=== PATIENT | female | born 1945 | race Native Hawaiian/Other Pacific Islander ===

== ENCOUNTER 2023-05-25 12:47 | Day surgery (SDC) | payer MEDICARE, OTHER ==
[~2023-05-25] VITALS: Ht 152.4 cm; Wt 48.0 kg
[~2023-05-25 12:47] MED LIST: ACET325 PO; AMLODIPINE BESY10 MG PO; CARVEDILOL6.25 MG PO; HYDR10 PO; INSULANI SC; NEURONTIN300 MG PO
[2023-05-25 14:52] VITALS: BP 188/102
--- NOTE | 2023-05-25 14:58 | NUR ---
PT BACK TO RECOVERY ROOM. PT ALERT AND ORIENTED. PERM CATH DRESSING CLEAN AND DRY.
[2023-05-25 15:02] VITALS: BP 230/86
[2023-05-25 15:15] VITALS: BP 224/87
[2023-05-25 15:30] VITALS: BP 232/84
--- NOTE | 2023-05-25 15:51 | NUR ---
DR SPANN IN TO SEE PT. PT EATING LUNCH.
--- NOTE | 2023-05-25 16:20 | NUR ---
PT AND SISTER VERBALIZE D/C INSTRUCTIONS. PT DRESSED. IV D/C CATHETER INTACT. PT WHEELED OUT TO HER SISTERS CAR AFTER USING REST ROOM.
== END 2023-05-25 16:24 | disposition home or self-care (01) ==
LOC: MHTC 12:47
DX: Z49.01 Encounter for fitting and adjustment of extracorporeal dialysis catheter (principal); I13.2 Hypertensive heart and chronic kidney disease with heart failure and with stage 5 chronic kidney disease, or end stage renal disease; E11.22 Type 2 diabetes mellitus with diabetic chronic kidney disease; N18.6 End stage renal disease; E11.42 Type 2 diabetes mellitus with diabetic polyneuropathy; Z88.5 Allergy status to narcotic agent; Z88.8 Allergy status to other drugs, medicaments and biological substances; Z79.4 Long term (current) use of insulin; Z79.899 Other long term (current) drug therapy
CPT/HCPCS: 36558; 76937; 77001; 99152; C1750; C1769; C1894; J1644; J2250; J3010; J7040

== ENCOUNTER 2023-07-09 09:31 | Emergency (ER) | payer MEDICARE, OTHER ==
[~2023-07-09] VITALS: Ht 152.4 cm; Wt 45.8 kg
[2023-07-09 10:11] LABS: BASOPHILS ABSOLUTE AUTO 0.04 K/mm3 (0.00-0.23); BASOPHILS PERCENT AUTO 1 % (0-2); EOSINOPHILS ABSOLUTE AUTO 0.06 K/mm3 (0.00-0.68); EOSINOPHILS PERCENT AUTO 1 % (0-6); Hematocrit 32.9 % (33.0-51.0); IMMATURE GRAN ABSOLUTE AUTO 0.04 K/mm3 (0.00-0.10); IMMATURE GRAN PERCENT AUTO 1 % (0-1); LYMPHOCYTES PERCENT AUTO 19 % (21-46); MONOCYTES ABSOLUTE AUTO 0.65 K/mm3 (0.16-1.47); MONOCYTES PERCENT AUTO 8 % (4-13); Mean Corpuscular HGB 29.3 pg (26.0-34.0); Mean Corpuscular HGB Conc 33.4 g/dL (31.5-36.5); Mean Corpuscular Volume 88 fL (80-100); Mean Platelet Volume 9.8 fL (9.1-12.4); NEUTROPHILS ABSOLUTE AUTO 6.21 K/mm3 (1.96-9.15); NEUTROPHILS PERCENT AUTO 72 % (41-73); Platelet Count 295 K/mm3 (150-400); RDW Standard Deviation 54.6 fL (35.1-46.3); Red Blood Cell Count 3.76 M/mm3 (3.80-5.20)
[2023-07-09 10:41] LABS: Albumin, Blood 2.7 g/dL (3.4-5.0); Albumin/Globulin Ratio 0.7 (0.8-1.8); Bilirubin, Total 0.5 mg/dL (0.1-1.0); Bun/Creatinine Ratio 9.7 (12.0-20.0); Calcium, Blood 8.5 mg/dL (8.5-10.1); Creatinine, Blood 3.31 mg/dL (0.40-1.00); Globulin, Blood 4.1 g/dL (2.2-4.0); Potassium, Blood 3.5 mmol/L (3.5-5.5); Total Protein, Blood 6.8 g/dL (6.4-8.2)
[2023-07-09 10:48] VITALS: BP 129/64
== END 2023-07-09 11:16 | disposition home or self-care (01) ==
LOC: ER 09:31
PROVIDERS: Physician Assistant
DX: I95.9 Hypotension, unspecified (principal); Z88.5 Allergy status to narcotic agent; Z88.8 Allergy status to other drugs, medicaments and biological substances; Z79.899 Other long term (current) drug therapy; Z79.4 Long term (current) use of insulin; E11.22 Type 2 diabetes mellitus with diabetic chronic kidney disease; N18.9 Chronic kidney disease, unspecified; I12.9 Hypertensive chronic kidney disease with stage 1 through stage 4 chronic kidney disease, or unspecified chronic kidney disease; E11.40 Type 2 diabetes mellitus with diabetic neuropathy, unspecified
CPT/HCPCS: 80053; 85025; 93005; 93010; 99284-25

== ENCOUNTER 2024-03-05 04:27 | Inpatient (IN) | payer MEDICARE, OTHER ==
[~2024-03-05] VITALS: Ht 152.4 cm; Wt 55.0 kg
[2024-03-05] VITALS (8 sets, daily range): BP systolic 119–173; BP diastolic 54–73
[~2024-03-05 04:27] MED LIST changes: +ASPI81CH PO; +ATOR40TA PO; +CLOP75 PO; +CYCL0.05OP BOTHEYES; +LATANOPROST2.5 M3 BOTHEYES; +NITR.4SL SL; +PANT40 PO; +POTA10T PO; +SEVEC800 PO; +TORSE20 PO
[2024-03-05 05:06] LABS: BASOPHILS ABSOLUTE AUTO 0.03 K/mm3 (0.00-0.23); BASOPHILS PERCENT AUTO 0 % (0-2); EOSINOPHILS PERCENT AUTO 1 % (0-6); Hematocrit 26.3 % (33.0-51.0); Hemoglobin 9.2 g/dL (11.5-16.0); IMMATURE GRAN ABSOLUTE AUTO 0.02 K/mm3 (0.00-0.10); IMMATURE GRAN PERCENT AUTO 0 % (0-1); LYMPHOCYTES ABSOLUTE AUTO 2.26 K/mm3 (0.84-5.20); LYMPHOCYTES PERCENT AUTO 30 % (21-46); MONOCYTES ABSOLUTE AUTO 1.07 K/mm3 (0.16-1.47); MONOCYTES PERCENT AUTO 14 % (4-13); Mean Corpuscular HGB 31.2 pg (26.0-34.0); Mean Corpuscular Volume 89 fL (80-100); Mean Platelet Volume 9.9 fL (9.1-12.4); NEUTROPHILS ABSOLUTE AUTO 4.16 K/mm3 (1.96-9.15); NEUTROPHILS PERCENT AUTO 54 % (41-73); Platelet Count 236 K/mm3 (150-400); RDW Coefficient Variation 16.4 % (11.7-14.2); RDW Standard Deviation 53.5 fL (35.1-46.3); Red Blood Cell Count 2.95 M/mm3 (3.80-5.20); White Blood Cell Count 7.64 K/mm3 (4.00-11.30)
[2024-03-05] MEDS ORDERED: Nitroglycerin 1 INCH/GM PKT TOP ONE (05:15)
[2024-03-05 05:34] LABS: Albumin, Blood 2.9 g/dL (3.4-5.0); Albumin/Globulin Ratio 0.8 (0.8-1.8); Bilirubin, Total 0.7 mg/dL (0.1-1.0); Bun/Creatinine Ratio 7.4 (12.0-20.0); Creatinine, Blood 4.61 mg/dL (0.40-1.00); Globulin, Blood 3.8 g/dL (2.2-4.0); Potassium, Blood 3.2 mmol/L (3.5-5.5); Total Protein, Blood 6.7 g/dL (6.4-8.2)
[2024-03-05 08:04] LABS: Anti-Xa UFH, PHA Monitoring <0.10 IU/mL; International Normalized Ratio 1.09; Prothrombin Time Results 11.6 Sec (9.7-11.5)
[2024-03-05] MEDS ORDERED: Heparin Sodium,Porcine/0.5 NS 500 ML IV SCH (08:20)
[2024-03-05] MEDS ORDERED: Heparin Sodium 5000 Units/ML 1ML MDV IV ONE (08:20)
[2024-03-05] MEDS ORDERED: Furosemide 10 MG/ML 4ML Vial IV ONE (08:45)
[2024-03-05] MEDS ORDERED: Nitroglycerin 0.4 MG SUBL SL PRN (09:30)
[2024-03-05] MEDS ORDERED: Acetaminophen 325 MG TABLET PO PRN (09:30)
[2024-03-05] MEDS ORDERED: Aspirin 81 MG Chew PO ONE (09:30)
[2024-03-05] MEDS ORDERED: Potassium Chloride 40 MEQ in NS 250 ML IV ONE (09:30)
[2024-03-05] MEDS ORDERED: Ondansetron HCl 2 MG / ML 2ML Vial IV PRN (09:35)
[2024-03-05] MEDS ORDERED: Morphine Sulfate 4 MG/1 ML Injection IV PRN (09:35)
[2024-03-05] MEDS ORDERED: Atorvastatin 40 MG Tab PO SCH ×2 (10:00→21:00)
--- NOTE | 2024-03-05 13:08 | NUR ---
CUSTOMS INVESTIGATOR TO BEDSIDE PT CONSENTED TO CATH TODAY, CONSENT SIGNED BY PT AND WITNESSED BY RN. CALLED PT'S SISTER TO UPDATE ON PLAN FOR CARDIAC CATHETERIZATION. BRIEFLY EXPLAINED PROCEDURE. SISTER IS HEADED BACK TO HOSPITAL NOW.
[2024-03-05] MEDS ORDERED: Heparin Sodium 1000 Units/ML 10ML MDV ONE (13:11)
[2024-03-05] MEDS ORDERED: NS 1,000 ML IV ONE ×2 (13:11→15:47)
[2024-03-05] MEDS ORDERED: NiCARdipine HCL 1,000 MCG/5 ML SYR ONE (13:11)
[2024-03-05] MEDS ORDERED: NS 250 ML IV ONE (13:11)
[2024-03-05] MEDS ORDERED: Nitroglycerin 2 MG/20 ML BTL ONE (13:11)
[2024-03-05] MEDS ORDERED: Clopidogrel Bisulfate 75 MG Tab PO SCH ×2 (14:00→16:00)
[2024-03-05] MEDS ORDERED: Gabapentin 300 MG Cap PO SCH (14:00)
[2024-03-05] MEDS ORDERED: Nitroglycerin 1 INCH/GM PKT TOP SCH (14:00)
[2024-03-05] MEDS ORDERED: Midazolam HCl 1MG / ML 2ML Vial ONE (15:47)
[2024-03-05] MEDS ORDERED: FentaNYL Citrate 50 MCG/ML 2 ML Injection ONE (15:47)
[2024-03-05] MEDS ORDERED: Clopidogrel Bisulfate 300 MG Cap ONE (16:41)
[2024-03-05] MEDS ORDERED: Carvedilol 6.25 MG Tab PO SCH (17:00)
[2024-03-05] MEDS ORDERED: HydrALAZINE HCl 20 MG / ML 1ML Vial IV PRN (17:25)
--- NOTE | 2024-03-05 18:07 | NUR ---
PT SUMMARY; PT ADMITTED TO [facility] AROUND 1400, PT IS HERE FOR CHEST PAIN. HAS 9/10 CHEST PRESSURE WAS GIVEN A TOTAL OF 2MG MORPHINE AND NITRO PASTE STARTED AND BROUGHT PAIN LEVEL DOWN TO 5. VITALS HRR SR 60'S, SBP 140-150'S, SATS ABOVE 90% ON 2L OF O2, AFEBRILE. TROPONIN TRENDED DOWN, DR YANG CAME BY TO CONSENT PT FPR ANGIO TODAY, PT WAS KEPT NPO. PT WAS TAKEN TO RECORDS MANAGEMENT TECHNICIAN AROUND 1555, CAME BACK AFTER AN HOUR WITH 2 STENTS PLACED TO MID AND DISTAL RCA. RIGHT RADIAL SITE WITH TR BAND IN PLACE, NO HEMATOMA OR BLEEDING NOTED ON THE SITE, SPLINT BOARD IN PLACE. DR BARCENAS CAME BY WELL PLAN TO DIALYZE PT TOMORROW PRIOR TO DISCHARGE. NO OTHER ISSUES REPORTED, PT NOW EATING DINNER, SISTER AT THE BEDSIDE AWARE OF THE PLAN OF CARE. CALL LIGHTS IN REACH WILL REPORT TO ONCOMING SHIFT
[2024-03-05] MEDS ORDERED: Ezetimibe 10 MG Tab PO SCH (21:00)
[2024-03-05] MEDS ORDERED: Latanoprost 0.005% Opth Soln 2.5 ML BOTHEYES SCH (21:00)
[2024-03-05] MEDS ORDERED: Misc. Opth BOTHEYES SCH (21:00)
[2024-03-06] VITALS (21 sets, daily range): BP systolic 108–166; BP diastolic 46–100
[2024-03-06 04:53] LABS: Hematocrit 25.6 % (33.0-51.0); Hemoglobin 8.7 g/dL (11.5-16.0); Mean Corpuscular HGB 30.4 pg (26.0-34.0); Mean Corpuscular Volume 90 fL (80-100); Mean Platelet Volume 10.6 fL (9.1-12.4); NRBC ABSOLUTE 0.03 K/mm3 (0.00-0.02); NRBC Auto 0.4 /100 WBC (0.0-0.2); Platelet Count 223 K/mm3 (150-400); RDW Coefficient Variation 16.3 % (11.7-14.2); Red Blood Cell Count 2.86 M/mm3 (3.80-5.20); White Blood Cell Count 6.74 K/mm3 (4.00-11.30)
--- NOTE | 2024-03-06 05:28 | NUR ---
03/05/24 1930 2ML AIR REMOVED TR BAND. 2030 2ML AIR REMOVED TR BAND. 2130 2ML AIR REMOVED TR BAND. 2250 2ML AIR REMOVED TR BAND. 2313 2ML AIR REMOVED TR BAND. 2338 2ML AIR REMOVED TR BAND. TOTAL 12ML AIR REMOVED FROM TR BAND. RT RADIAL SITE REMAINED INTACT NO BLEEDING/BRUISING/SWELLING/PAIN NOTED. 03/06/24 0120 TR BAND REMOVED AND TEGADERM PLACED OVER RIGHT RADIAL SITE.
--- NOTE | 2024-03-06 05:31 | NUR ---
0300 PT O2 SAT DROPPING WHILE ASLEEP. PT WOKE EASILY, NO C/O SOB/CP. PT REPOSITIONED AND NC RESECURED IN NARES WITH LOOPS AROUND EARS. O2 SAT IMPROVED WNL.
[2024-03-06 05:43] LABS: Albumin, Blood 2.7 g/dL (3.4-5.0); Albumin/Globulin Ratio 0.8 (0.8-1.8); Alk Phos 87 U/L (50-136); Anion Gap 12 mmol/L (3-11); Aspartate Aminotrans (AST/SGOT 743 U/L (12-37); Bilirubin, Total 0.5 mg/dL (0.1-1.0); Blood Urea Nitrogen 47 mg/dL (8-24); Bun/Creatinine Ratio 8.2 (12.0-20.0); CHOL/HDL RATIO 2.3; CO2, Blood 30 mmol/L (21-32); Calcium, Blood 7.6 mg/dL (8.5-10.1); Chloride, Blood 95 mmol/L (98-108); Cholesterol 101 mg/dL (50-200); Creatinine, Blood 5.72 mg/dL (0.40-1.00); Globulin, Blood 3.5 g/dL (2.2-4.0); Glomerular Filtration Rate 7 (60-); Glucose, Blood 83 mg/dL (70-99); HDL Cholesterol 43 mg/dL (>39); LDL/HDL RATIO 0.9; Low Density Lipoprotein Chol 38 mg/dL (0-110); Phosphorus, Blood 5.1 mg/dL (2.5-4.9); Potassium, Blood 3.7 mmol/L (3.5-5.5); Sodium, Blood 133 mmol/L (136-145); Total Protein, Blood 6.2 g/dL (6.4-8.2); Triglycerides 100 mg/dL (30-160); Very Low Density Lipoprot Chol 20 mg/dL (6-32)
[2024-03-06 05:54] LABS: Alanine Aminotransfer (ALT/SGP 1018 U/L (12-78)
--- NOTE | 2024-03-06 06:17 | NUR ---
PT C/O MID BACK PAIN. PT REPOSITIONED AND GIVEN PAIN MEDICATION.
[2024-03-06] MEDS ORDERED: Calcium Acetate 667 MG Gel Cap PO SCH (07:30)
--- NOTE | 2024-03-06 08:42 | NUR ---
PT GIVEN MORNING MEDS AND NOW HEADED TO DIALYSIS FOR TREATMENT.
[2024-03-06] MEDS ORDERED: Epoetin Alfa-EPBX 10,000 Unit/ML 1ML Vial SC SCH (09:00)
[2024-03-06] MEDS ORDERED: Aspirin 81 MG Chew PO SCH (09:00)
[2024-03-06] MEDS ORDERED: Losartan Potassium 25 MG Tab PO SCH (09:00)
[2024-03-06] MEDS ORDERED: Gabapentin 300 MG Cap PO SCH (09:00)
[2024-03-06] MEDS ORDERED: Clopidogrel Bisulfate 75 MG Tab PO SCH (09:00)
[2024-03-06] MEDS ORDERED: Vitamin B Cmplx/Vit C/Folic Ac 1 Tab PO SCH (09:00)
--- NOTE | 2024-03-06 11:26 | NUR ---
PT HAS ARRIVED BACK ON THE UNIT AFTER DIALYSIS
--- NOTE | 2024-03-06 18:12 | NUR ---
PT SUMMARY; PT HAD DIALYSIS TODAY 2L OF FLUID WAS TAKEN OUT, PT REPORTS FATIGUE POST DIALYSIS AND HAS TAKEN NAPS SINCE THEN. VITALS STABLE HRR SR 60'S, SBP 120-130'S, SATS ABOVE 90% ON 2L ATTEMPTED TO TITRATE TO RA PT STILL DESATS TO 87% PT REPORTS BREATHING HAS IMPROVED AFTER DIALYSIS. THORACENTESIS ORDERED FOR TOMORROW FOR PLEURAL EFFUSION. COMMUNICATED WITH RADIOLOGIST ABOUT PLAVIX AND ASPIRIN, PT HAD A LOADING DOSE DURING ANGIO AND THAT PT CANNOT HOLD PLAVIX POST ANGIO, PROOF COINS INSPECTOR ALSO ABLE TO LET MD AWARE OF THE SITUATION. WILL FF-UP IN AM WITH THE RADIOLOGIST. PT MADE AWARE OF THE PLAN NO OTHER ISSUES ENCOUNTERED FOR THE SHIFT, ABLE TO MAKE NEEDS KNOWN, WILL REPORT TO ONCOMING SHIFT
[2024-03-07] VITALS (20 sets, daily range): BP systolic 122–184; BP diastolic 44–78
--- NOTE | 2024-03-07 04:18 | NUR ---
SHIFT SUMMARY PATIENT A&OX4, VSS ON 2LNC, MINIMAL URINE OUTPUT VIA PUREWICK, ESRD ON HD- TOLERATED DIAYSIS YESTEDAY WITH 2L REMOVED. PLAN IS FOR THORACENTESIS TODAY FOR BL PLEURAL EFFUSIONS SEEN ON CT CHEST AT ADMISSION. NSR ON TELE, PATIENT DENIES PAIN AND IS TOLERATING A RENAL DIET. R RADIAL ANGIO SITE CDI. L ARM FISTUAL WITH POSITIVE BRUIT AND THRILL. PER FORESTRY HUNTER DR. CAGLE PATIENT TO BE DISCHARGED ON BRILINTA NOT PLAVIX, COUPON ON CHART, FOLLOW UP APPT CARD ON CHART, STENT CARD ON CHART. TO DC 1-2 DAYS, HOME WITH RESUMPTION OF OP DIALYSIS
[2024-03-07 04:42] LABS: Percent Saturation 11.4 % (15.0-50.0)
[2024-03-07 04:47] LABS: Albumin, Blood 2.5 g/dL (3.4-5.0); Albumin/Globulin Ratio 0.7 (0.8-1.8); Bilirubin, Total 0.4 mg/dL (0.1-1.0); Bun/Creatinine Ratio 8.1 (12.0-20.0); Calcium, Blood 7.5 mg/dL (8.5-10.1); Creatinine, Blood 5.4 mg/dL (0.40-1.00); Globulin, Blood 3.5 g/dL (2.2-4.0); Potassium, Blood 3.5 mmol/L (3.5-5.5)
--- NOTE | 2024-03-07 12:12 | NUR ---
REASSESSMENT ATTEMPTED TO WEAN PT OFF OXYGEN THIS MORNING, BUT SATS DROPPED TO THE MID 80S ON RA. LUNGS ARE CLEAR, DIM IN THE BASES. SHE SPENT MOST OF THE MORNING AT DIALYSIS. RADIOLOGY CALLED AND SAID THEY ADVISE DOING A CXR TOMORROW TO RE-EVALUATE PLEURAL EFFUSIONS BEFORE DOING A THORACENTESIS. THIS WAS RELAYED TO DR. PALOMO. MEDICATED ONCE FOR HEADACHE. R TR ANGIO SITE IS C/D/I, SOFT, WITHOUT SIGNS OF HEMATOMA.
[2024-03-07] MEDS ORDERED: Polyethylene Glycol 3350 17 gm PO PRN (12:25)
[2024-03-07] MEDS ORDERED: Ferrous Sulfate 325 MG Tab PO SCH (13:00)
--- NOTE | 2024-03-07 16:38 | NUR ---
SHIFT SUMMARY PT HAD DIALYSIS THIS MORNING AND HAS BEEN RESTING IN BED SINCE. SHE WAS MEDICATED FOR SOME BILATERAL RIB PAIN THAT SHE STATES IS CHRONIC. LUNGS ARE DIM IN THE BASES, ON 1L/NC. SR, BP STABLE. PT'S SISTER HAS BEEN AT THE BEDSIDE THIS AFTERNOON AND HAS BEEN UPDATED.
[2024-03-07] MEDS ORDERED: Docusate Sodium 100 MG Cap PO SCH (21:00)
[2024-03-08] VITALS (19 sets, daily range): BP systolic 146–206; BP diastolic 51–78
--- NOTE | 2024-03-08 04:14 | NUR ---
SHIFT SUMMARY PATIENT WITH NO ISSUES OVERNIGHT, VSS ON 1LNC, WILL ATTEMPT TO WEAN O2 THIS AM. PATIENT'S PUREWICK REMOVED DUE TO MINIMAL URINE OUTPUT AND MORE RISK FOR UTI. JESUS CARE AND NEW DEPENDS PROVIDED. PATIENT TOLERATING RENAL DIET, PLAN IS FOR REPEAT CHEST XRAY THIS AM, THEN POSSIBLE THORACENTESIS VS ANOTHER RUN OF DIALYSIS PER TAPING FOREMAN AT BEDSIDE. PATIENT WISHES TO GO HOME TODAY PENDING RESULTS/PROCEDURES.. DENIED PAIN THIS SHIFT. GETTING OOB WITH NURSE ASSIST. NSR ON TELE, OFFERED A SHOWER- PATIENT REFUSED. R RADIAL SITE CDI. L ARM FISTULA WNL.
[2024-03-08 04:44] LABS: Albumin, Blood 2.5 g/dL (3.4-5.0); Anion Gap 10 mmol/L (3-11); Blood Urea Nitrogen 26 mg/dL (8-24); Bun/Creatinine Ratio 5.8 (12.0-20.0); CO2, Blood 29 mmol/L (21-32); Calcium, Blood 7.6 mg/dL (8.5-10.1); Chloride, Blood 103 mmol/L (98-108); Creatinine, Blood 4.48 mg/dL (0.40-1.00); Glomerular Filtration Rate 10 (60-); Glucose, Blood 95 mg/dL (70-99); Phosphorus, Blood 3.3 mg/dL (2.5-4.9); Potassium, Blood 3.5 mmol/L (3.5-5.5); Sodium, Blood 138 mmol/L (136-145)
--- NOTE | 2024-03-08 06:46 | NUR ---
ULTRASOUND/THORA PLAN- US CALLING ASKING FOR UPDATE REGARDING PLAN FOR THORA- PER MD FROM YESTERDAY PATIENT TO HAVE A REPEAT XR OF CHEST TO SEE IF AN US-GUIDED THORA IS NECESSARY OR IF THE PT'S PLEURAL EFFUSIONS ARE TOO SMALL. RADIOLOGIST WANTS CXR DONE PRIOR TO US/THORA. NO ORDER FOR CXR HAS BEEN ENTERED. WILL PAGE DAY MD WHEN THEY ARRIVE TO OBTAIN ORDER.
--- NOTE | 2024-03-08 08:58 | NUR ---
0830 UP TO BR W/ SBA THEN TAKEN VIA BED TO DIALYSIS.
--- NOTE | 2024-03-08 09:27 | NUR ---
PT IN DIALYSIS, WORD RECEIVED WILL NOT NEED TO DO THORACENTESIS, WILL GIVE PLAVIX AND ASPIRIN UPON HER RETURN TO HER ROOM.
[2024-03-08 11:19] LABS: Albumin, Blood 2.4 g/dL (3.4-5.0); Albumin/Globulin Ratio 0.6 (0.8-1.8); Bilirubin, Direct 0.1 mg/dL (0.0-0.3); Bilirubin, Indirect 0.3 mg/dL (0.1-0.7); Bilirubin, Total 0.4 mg/dL (0.1-1.0); Globulin, Blood 3.8 g/dL (2.2-4.0); Total Protein, Blood 6.2 g/dL (6.4-8.2)
--- NOTE | 2024-03-08 13:09 | NUR ---
MORELIA HAS BEEN OFF HER OXYGEN SINCE BEFORE HEADING TO DIALYSIS AT 0830. SHE HAS HAD LUNCH AND SINCE BEEN UP TO THE BATHROOM, STATES SHE FEELS A BIT WINDED AFTER USING THE RESTROOM, HER SATS ARE 97-98% ON ROOM AIR. SISTER IS HERE TO VISIT. PT IS ALSO SAYING THAT HER BACK IS BOTHERING HER SOME. LUNGS ARE NOW CLEAR AFTER DIALYSIS, NO FURTHER RALES HEARD. NO EDEMA NOTED IN EXTREMITIES. CONTINUES TO BE PLEASANT AND COOPERATIVE. BLOOD PRESSURE IS REMAINING ELEV. MOVED CUFF FROM LEG TO FOREARM, SIMILAR READING.
[2024-03-08] MEDS ORDERED: B-COMPLEX WITH1 EACH PO (13:40)
[2024-03-08] MEDS ORDERED: Calcium Acetat667 MG PO (13:41)
[2024-03-08] MEDS ORDERED: CLOP75 PO (13:41)
[2024-03-08] MEDS ORDERED: EZET10 PO (13:42)
[2024-03-08] MEDS ORDERED: FERSU300 PO (13:43)
[2024-03-08] MEDS ORDERED: LOSA25 PO (13:43)
[2024-03-08] MEDS ORDERED: MIRALAX17 GM PO (13:44)
--- NOTE | 2024-03-08 13:55 | NUR ---
PT WAS UP AND WALKING IN THE HALLWAY WITH RESPIRATORY CARE FOR OXYGEN EVAL, SHE DID WELL, CHARISSE REPORTED SHE NEVER DROPPED BELOW 93%. SHE FELT GOOD AND HAS RETURNED TO HER ROOM. WILL FINISH HER PAPERWORK AND THEN GO OVER IT WITH HER. PLAN TO DISCHARGE TO SISTER DRIVING.
--- NOTE | 2024-03-08 14:58 | NUR ---
DISCHARGE INSTRUCTIONS GIVEN BY HELEN GARZALOCKSTITCH LINING SETTER NURSE. QUESTIONS ASKED AND ANSWERED. PACKET GIVEN TO PATIENT WITH ALL INFORMATION. WHEELCHAIR RIDE TO SOUTH ENTRANCE, TO HER CAR WHERE SISTER IS DRIVING.
== END 2024-03-08 15:01 | disposition home or self-care (01) | DRG 321 ==
LOC: ER 04:27 → PCU 09:22
PROVIDERS: Emergency Medicine; ADMIT Internal Medicine
PROC: 027035Z Dilation of Coronary Artery, One Artery with Two Drug-eluting Intraluminal Devices, Percutaneous Approach (ICD-10-PCS; principal; 2024-03-05)
PROC: B2111ZZ Fluoroscopy of Multiple Coronary Arteries using Low Osmolar Contrast (ICD-10-PCS; 2024-03-05)
PROC: 4A023N7 Measurement of Cardiac Sampling and Pressure, Left Heart, Percutaneous Approach (ICD-10-PCS; 2024-03-05)
DX: I21.4 Non-ST elevation (NSTEMI) myocardial infarction (principal); I50.23 Acute on chronic systolic (congestive) heart failure; N18.6 End stage renal disease; J96.01 Acute respiratory failure with hypoxia; E87.1 Hypo-osmolality and hyponatremia; N25.81 Secondary hyperparathyroidism of renal origin; I13.2 Hypertensive heart and chronic kidney disease with heart failure and with stage 5 chronic kidney disease, or end stage renal disease; E78.5 Hyperlipidemia, unspecified; I25.10 Atherosclerotic heart disease of native coronary artery without angina pectoris; Z66 Do not resuscitate; Z99.2 Dependence on renal dialysis; K76.1 Chronic passive congestion of liver; E87.6 Hypokalemia; D63.1 Anemia in chronic kidney disease; D50.9 Iron deficiency anemia, unspecified; E11.22 Type 2 diabetes mellitus with diabetic chronic kidney disease; E11.42 Type 2 diabetes mellitus with diabetic polyneuropathy; H40.9 Unspecified glaucoma; I27.20 Pulmonary hypertension, unspecified; Z88.5 Allergy status to narcotic agent; Z88.8 Allergy status to other drugs, medicaments and biological substances; Z79.82 Long term (current) use of aspirin; Z79.899 Other long term (current) drug therapy; Z79.891 Long term (current) use of opiate analgesic; I25.2 Old myocardial infarction; Z90.49 Acquired absence of other specified parts of digestive tract; Z98.890 Other specified postprocedural states; Z90.710 Acquired absence of both cervix and uterus
CPT/HCPCS: 36415; 71045; 71046; 71260; 76937; 80053; 80061; 80069; 80076; 82728; 83036; 83540; 83550; 83615; 83880; 84100; 84484; 85025; 85027; 85347; 85520; 85610; 85730; 93005; 93010; 93306; 93454; 94760; 94761; 94762; 96365-59; 96375-59; 96376-59; 99152; 99153; 99285-25; A9270; C1725; C1769; C1874; C1887; C1894; C9600; J0360; J1644; J1940; J2250; J2270; J3010; J3480; J7030; J7050; Q5106; Q9967

== ENCOUNTER 2024-03-12 08:27 | Emergency (ER) | payer MEDICARE, OTHER ==
[~2024-03-12] VITALS: Ht 152.4 cm; Wt 56.2 kg
[~2024-03-12 08:27] MED LIST changes: +B-COMPLEX WITH1 EACH PO; +Calcium Acetat667 MG PO; +EZET10 PO; +FERSU300 PO; +LOSA25 PO; +MIRALAX17 GM PO
[2024-03-12 08:56] LABS: BASOPHILS ABSOLUTE AUTO 0.05 K/mm3 (0.00-0.23); BASOPHILS PERCENT AUTO 1 % (0-2); EOSINOPHILS PERCENT AUTO 3 % (0-6); Hematocrit 30.8 % (33.0-51.0); Hemoglobin 10.2 g/dL (11.5-16.0); IMMATURE GRAN ABSOLUTE AUTO 0.04 K/mm3 (0.00-0.10); IMMATURE GRAN PERCENT AUTO 1 % (0-1); LYMPHOCYTES ABSOLUTE AUTO 2.18 K/mm3 (0.84-5.20); LYMPHOCYTES PERCENT AUTO 35 % (21-46); MONOCYTES ABSOLUTE AUTO 0.97 K/mm3 (0.16-1.47); MONOCYTES PERCENT AUTO 15 % (4-13); Mean Corpuscular HGB 30.3 pg (26.0-34.0); Mean Corpuscular HGB Conc 33.1 g/dL (31.5-36.5); Mean Corpuscular Volume 91 fL (80-100); Mean Platelet Volume 10.3 fL (9.1-12.4); NEUTROPHILS ABSOLUTE AUTO 2.88 K/mm3 (1.96-9.15); NEUTROPHILS PERCENT AUTO 46 % (41-73); Platelet Count 302 K/mm3 (150-400); RDW Coefficient Variation 16.8 % (11.7-14.2); RDW Standard Deviation 55.5 fL (35.1-46.3); Red Blood Cell Count 3.37 M/mm3 (3.80-5.20); White Blood Cell Count 6.32 K/mm3 (4.00-11.30)
[2024-03-12 09:24] LABS: Albumin, Blood 3.1 g/dL (3.4-5.0); Albumin/Globulin Ratio 0.8 (0.8-1.8); Bilirubin, Total 0.8 mg/dL (0.1-1.0); Bun/Creatinine Ratio 6.7 (12.0-20.0); Calcium, Blood 8.8 mg/dL (8.5-10.1); Creatinine, Blood 4.31 mg/dL (0.40-1.00); Potassium, Blood 3.6 mmol/L (3.5-5.5); Total Protein, Blood 7.1 g/dL (6.4-8.2)
[2024-03-12] MEDS ORDERED: PLAVIX75 MG PO (11:35)
[2024-03-12 11:43] VITALS: BP 153/66
== END 2024-03-12 11:45 | disposition home or self-care (01) ==
LOC: ER 08:27
PROVIDERS: Physician Assistant
DX: M54.6 Pain in thoracic spine (principal); E11.40 Type 2 diabetes mellitus with diabetic neuropathy, unspecified; E11.22 Type 2 diabetes mellitus with diabetic chronic kidney disease; I12.0 Hypertensive chronic kidney disease with stage 5 chronic kidney disease or end stage renal disease; N18.6 End stage renal disease; Z79.899 Other long term (current) drug therapy; Z79.82 Long term (current) use of aspirin; Z88.5 Allergy status to narcotic agent; Z88.8 Allergy status to other drugs, medicaments and biological substances
CPT/HCPCS: 71046; 80053; 83690; 84484; 85025; 93005; 93010; 99285-25

== ENCOUNTER 2024-03-22 13:59 | Emergency (ER) | payer MEDICARE, OTHER ==
[~2024-03-22] VITALS: Ht 152.4 cm; Wt 53.5 kg
[~2024-03-22 13:59] MED LIST changes: +PLAVIX75 MG PO
[2024-03-22 14:13] VITALS: BP 151/50
== END 2024-03-22 15:54 | disposition home or self-care (01) ==
LOC: ER 13:59
DX: I97.618 Postprocedural hemorrhage of a circulatory system organ or structure following other circulatory system procedure (principal); I12.0 Hypertensive chronic kidney disease with stage 5 chronic kidney disease or end stage renal disease; E11.22 Type 2 diabetes mellitus with diabetic chronic kidney disease; N18.6 End stage renal disease; Z99.2 Dependence on renal dialysis; E11.40 Type 2 diabetes mellitus with diabetic neuropathy, unspecified; Z88.5 Allergy status to narcotic agent; Z88.8 Allergy status to other drugs, medicaments and biological substances; Z79.82 Long term (current) use of aspirin; Z79.01 Long term (current) use of anticoagulants; Z79.899 Other long term (current) drug therapy
CPT/HCPCS: 12001; 99282-25

== ENCOUNTER 2024-10-26 10:06 | Observation (INO) | payer OTHER, MEDICARE ==
[~2024-10-26] VITALS: Ht 152.4 cm; Wt 55.2 kg
[2024-10-26 10:35] LABS: BASOPHILS ABSOLUTE AUTO 0.03 K/mm3 (0.00-0.23); BASOPHILS PERCENT AUTO 1 % (0-2); EOSINOPHILS PERCENT AUTO 2 % (0-6); Hematocrit 32.9 % (33.0-51.0); Hemoglobin 10.9 g/dL (11.5-16.0); IMMATURE GRAN ABSOLUTE AUTO 0.02 K/mm3 (0.00-0.10); IMMATURE GRAN PERCENT AUTO 0 % (0-1); LYMPHOCYTES ABSOLUTE AUTO 1.49 K/mm3 (0.84-5.20); LYMPHOCYTES PERCENT AUTO 32 % (21-46); MONOCYTES ABSOLUTE AUTO 0.75 K/mm3 (0.16-1.47); MONOCYTES PERCENT AUTO 16 % (4-13); Mean Corpuscular HGB 30.3 pg (26.0-34.0); Mean Corpuscular HGB Conc 33.1 g/dL (31.5-36.5); Mean Corpuscular Volume 91 fL (80-100); Mean Platelet Volume 10.1 fL (9.1-12.4); NEUTROPHILS ABSOLUTE AUTO 2.29 K/mm3 (1.96-9.15); NEUTROPHILS PERCENT AUTO 49 % (41-73); Platelet Count 190 K/mm3 (150-400); RDW Coefficient Variation 16.2 % (11.7-14.2); RDW Standard Deviation 54.2 fL (35.1-46.3); White Blood Cell Count 4.68 K/mm3 (4.00-11.30)
[2024-10-26 10:56] LABS: Albumin, Blood 3.3 g/dL (3.4-5.0); Albumin/Globulin Ratio 0.8 (0.8-1.8); Bilirubin, Total 0.8 mg/dL (0.1-1.0); Bun/Creatinine Ratio 3.8 (12.0-20.0); Calcium, Blood 8.1 mg/dL (8.5-10.1); Creatinine, Blood 5.57 mg/dL (0.40-1.00); Potassium, Blood 3.7 mmol/L (3.5-5.5); Total Protein, Blood 7.3 g/dL (6.4-8.2)
[2024-10-26] MEDS ORDERED: Furosemide 80 MG Tab PO ONE (15:00)
[2024-10-26 16:34] VITALS: BP 177/57
--- NOTE | 2024-10-26 17:16 | NUR ---
PT ARRIVED TO ROOM AOX4 AND COOPERATIVE OF CARE. PT SETTLED INTO ROOM CALL LIGHT WITHIN REACH. NO DISTRESS CURRENTLY NOTED AND DOING WELL ON 2L O2. WILL CONTINUE TO MONITOR.
[2024-10-26 20:29] VITALS: BP 159/59
[2024-10-26] MEDS ORDERED: Heparin Sodium,Porcine 5,000 UNIT/0.5 ML SDV SC SCH (21:00)
[2024-10-26] MEDS ORDERED: AMLO10 PO (22:43)
[2024-10-26] MEDS ORDERED: AmLODIPine Besylate 5 MG Tab PO SCH (23:20)
[2024-10-26] MEDS ORDERED: Gabapentin 300 MG Cap PO SCH (23:20)
[2024-10-26] MEDS ORDERED: Ezetimibe 10 MG Tab PO SCH (23:20)
[2024-10-26] MEDS ORDERED: Carvedilol 6.25 MG Tab PO SCH (23:20)
[2024-10-26] MEDS ORDERED: Latanoprost 0.005% Opth Soln 2.5 ML BOTHEYES SCH (23:25)
[2024-10-27] VITALS (18 sets, daily range): BP systolic 125–171; BP diastolic 47–93
--- NOTE | 2024-10-27 04:50 | NUR ---
SHIFT SUMMARY PT ALERT ORIENTED ABLE TO VERBALIZE NEEDS GETS UP TO THE BATHROOM WITH 1 PERSON SBA. BP HAS BEEN ELEVATED. SHE TAKES BP MEDS AT HOME SO I CALLED MD AND GOT A ORDER TO START HER ON HER BP MEDS AND THEY WERE GIVEN. NO C/O PAIN THIS SHIFT. SHES A DIALYSIS PT AND MDS NOTE STATED THAT SHE WILL BE GOING TODAY. LABS WERE DONE ORDERED. SHE HAS A FISTULA TO HER LT ARM. REMAINS ON 1L OF O2 VIA NC SATTING AT 95%. CONTINUES ON A CONTINUOUS PULSE OX. SHES RESTING IN BED AT THIS TIME WITH CALL LIGHT IN REACH
[2024-10-27 06:01] LABS: Bun/Creatinine Ratio 3.5 (12.0-20.0); Calcium, Blood 7.4 mg/dL (8.5-10.1); Creatinine, Blood 7.21 mg/dL (0.40-1.00); Potassium, Blood 3.6 mmol/L (3.5-5.5)
[2024-10-27] MEDS ORDERED: Calcium Acetate 667 MG Gel Cap PO SCH (08:30)
[2024-10-27] MEDS ORDERED: Aspirin 81 MG Chew PO SCH (09:00)
[2024-10-27] MEDS ORDERED: Losartan Potassium 50 MG Tab PO SCH (09:00)
[2024-10-27] MEDS ORDERED: Clopidogrel Bisulfate 75 MG Tab PO SCH (09:00)
--- NOTE | 2024-10-27 12:50 | NUR ---
PT DISCHARGED AT 1230 TODAY AFTER SHE RECIEVED DIALYSIS IN THE AM. PT AOX4 AND COOPERATIVE OF ALL CARE. PT HAD DISCHARGE REVIEWED AND EDUCATIONAL MATERIAL SENT WITH PT. PT ESCORTED OUT TO S ENTRANCE VIA WHEELCHAIR NO DISTRESS NOTED AND SISTER TO TRANSPORT.
[2024-10-29 11:11] LABS: HEPATITIS B SURFACE ANTIBODY 75.45 IU/L
[2024-10-29 11:36] LABS: HEPATITIS B SURFACE ANTIGEN Negative (Negative)
[2024-10-29 11:44] LABS: HBV CORE ANTIBODIES,TOTAL Negative (Negative)
== END 2024-10-27 12:33 | disposition home or self-care (01) ==
LOC: ER 10:06 → MEDS 10:07 → ERHOLD 10:07 → MEDS 16:21
PROVIDERS: Hospitalist; Physician Assistant; Student in an Organized Health Care Education/Training Program; ADMIT Hospitalist
DX: I13.2 Hypertensive heart and chronic kidney disease with heart failure and with stage 5 chronic kidney disease, or end stage renal disease (principal); E11.22 Type 2 diabetes mellitus with diabetic chronic kidney disease; I50.9 Heart failure, unspecified; N18.6 End stage renal disease; I21.4 Non-ST elevation (NSTEMI) myocardial infarction; I25.10 Atherosclerotic heart disease of native coronary artery without angina pectoris; E11.40 Type 2 diabetes mellitus with diabetic neuropathy, unspecified; Z66 Do not resuscitate; Z79.82 Long term (current) use of aspirin; Z79.899 Other long term (current) drug therapy; Z88.5 Allergy status to narcotic agent; Z88.8 Allergy status to other drugs, medicaments and biological substances; Z99.2 Dependence on renal dialysis
CPT/HCPCS: 36415; 71046; 71260; 80048; 80053; 83036; 84484; 85025; 85379; 86704; 87340; 93005; 93010; 93306; 96372; 99285-25; A6590; A9270; G0257; G0378; J1644; Q9967